=== PATIENT | male | born 1995 | race African-American/Black ===

== ENCOUNTER 2017-11-03 15:36 | Emergency (ER) | payer OTHER ==
--- NOTE | 2017-11-03 16:26 | XRAY Report ---
Reason: Trauma Procedure Date: 11/03/2017 Accession Number: [id number] / [id number] Procedure: XR - Wrist 4 View LT CPT Code: FULL RESULT: EXAM: LEFT WRIST RADIOGRAPHY EXAM DATE: 11/03/2017 04:14 PM. CLINICAL HISTORY: Pain and swelling since injury lifting heavy object a couple of weeks ago. COMPARISON: None. TECHNIQUE: 4 views. FINDINGS: Bones: Normal. No fractures or bone lesions. Joints: Normal. No subluxations. Soft Tissues: Normal. No soft tissue swelling. IMPRESSION: Normal wrist radiography. [facility]
--- NOTE | 2017-11-03 17:49 | ED Physician Documentation ---
PD HPI UPPER EXT INJURY - Stated complaint Stated Complaint: L WRIST PX - Chief complaint Chief Complaint: Ext Problem - History obtained from History obtained from: Patient - History of Present Illness Location: Left, Wrist Type of injury: Other (over use at work) Where injury occurred: Work Timing - onset: How many months ago (3) Timing - duration: Months Timing - details: Gradual onset, Still present, Waxing and waning Improved by: Rest, Immobilization Worsened by: Moving, Palpating Associated symptoms: Swelling. 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 He does lift objects 300-500lbs. He has some numbness to the hand periodically and he has a small mass on the back of the wrist that is painful. Review of Systems Constitutional: denies: Fever Eyes: denies: Decreased vision Ears: denies: Ear pain Nose: denies: Congestion Throat: denies: Sore throat Cardiac: denies: Chest pain / pressure Respiratory: denies: Dyspnea, Cough GI: denies: Abdominal Pain, Nausea, Vomiting : denies: Dysuria, Frequency Skin: denies: Rash Musculoskeletal: reports: Extremity pain, Joint pain, Pain with weight bearing. denies: Neck pain, Back pain PD PAST MEDICAL HISTORY - Present Medications Home Medications: Ambulatory Orders Medication Instructions Recorded Confirmed No Known Home Medications [No 11/03/17 11/03/17 Known Home Medications] - Allergies Allergies/Adverse Reactions: Allergies Allergy/AdvReac Type Severity Reaction Status Date / Time No Known Drug Allergies Allergy Verified 11/03/17 15:46 PD ED PE NORMAL - Vitals Vital signs reviewed: Yes (hypertensive ) - General General: Alert and oriented X 3, No acute distress, Well developed/nourished, Other (muscular/fit active duty male ) - HEENT HEENT: Atraumatic, PERRL - Respiratory Respiratory: No respiratory distress - Back Back: No CVA TTP, No spinal TTP - Derm Derm: Normal color, No rash - Extremities Extremities: No deformity, No edema, Other (There is point tenderness to the volar and dorsal mid wrist. There is some numbness into the hand to tapping on the median nerve. There is no tenderness to the anatomic snuff box. There is good ROM to the wrist. distal n/v is intact. 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, No motor deficit, No sensory deficit, Normal speech Eye Opening: Spontaneous Motor: Obeys Commands Verbal: Oriented GCS Score: 15 - Psych Psych: Normal mood, Normal affect Results - Vitals Vitals: Vital Signs - 24 hr 11/03/17 11/03/17 15:44 18:09 Temperature 36.2 C L 36.7 C Heart Rate 79 81 Respiratory 16 16 Rate Blood Pressure 136/76 H 114/60 O2 Saturation 100 98 Oxygen O2 Source Room air - Rads (name of study) wrist L Radiology: Prelim report reviewed (Impression: Normal wrist radiography.), EMP read indepedently, See rad report Procedures - Splint (location) left wrist Splint applied by: Tech Type of splint: Fiberglass, Volar cock up Other: Patient tolerated well, No complications, Neurovascular intact, Good alignment PD MEDICAL DECISION MAKING - ED course Complexity details: reviewed results, re-evaluated patient, considered differential, d/w patient ED course: 22-year-old male with chronic pain in his left wrist from excessive use at work appears to have some carpal tunnel and he does appear to have a small ganglion cyst on the dorsum of the wrist as well. He is placed into a splint given dexamethasone and instructed to follow-up with orthopedics. - Sepsis Event Vital Signs: Vital Signs - 24 hr 11/03/17 11/03/17 15:44 18:09 Temperature 36.2 C L 36.7 C Heart Rate 79 81 Respiratory 16 16 Rate Blood Pressure 136/76 H 114/60 O2 Saturation 100 98 Oxygen O2 Source Room air Departure - Departure Disposition: 01 Home, Self Care Clinical Impression: Strain of left wrist Qualifiers: Encounter type: initial encounter Qualified Code(s): S66.912A - Strain of unspecified muscle, fascia and tendon at wrist and hand level, left hand, initial encounter Condition: Stable Instructions: ED Sprain Wrist Follow-Up: Johnnie Mcgarry MD [Primary Care Provider] - [facility] [Provider Group]
[2017-11-03 18:10] VITALS: BP 114/60
[2017-11-03] MEDS ORDERED: DEXAMETHASONE 10 MG/ML VIAL PO STA (18:27)
== END 2017-11-03 18:33 | disposition home or self-care (01) ==
LOC: ED 15:36
DX: S66.912A Strain of unspecified muscle, fascia and tendon at wrist and hand level, left hand, initial encounter (principal); X50.0XXA Overexertion from strenuous movement or load, initial encounter; Y99.1 Military activity
CPT/HCPCS: 29125; 99283

== ENCOUNTER 2018-02-13 21:28 | Emergency (ER) | payer OTHER ==
[2018-02-13 21:43] VITALS: BP 143/80
--- NOTE | 2018-02-13 22:15 | ED Physician Documentation ---
History of Present Illness - Stated complaint Stated Complaint: SOA/VOMITING/DIZZY - Chief complaint Chief Complaint: Resp - History obtained from History obtained from: Patient - History of Present Illness Timing: How many days ago (3) Improved by: no ameliorating factors Worsened by: no exacerbating factors - Additonal information Additional information: c/o 3 days of increasingly frequent cough productive of green, thick sputum that has become blood-tinged today. c/o bilateral sinus congestion. subjective fevers (chills/sweats but has not measured temperature at home). Review of Systems Constitutional: reports: Chills, Sweats Ears: reports: Ear pain Nose: reports: Rhinorrhea / runny nose, Congestion, Sinus pressure / pain Throat: reports: Sore throat Cardiac: reports: Reviewed and negative Respiratory: reports: Cough, Hemoptysis. denies: Dyspnea GI: reports: Reviewed and negative PD PAST MEDICAL HISTORY - Past Medical History Past Medical History: No - Past Surgical History Past Surgical History: No - Present Medications Home Medications: Ambulatory Orders Medication Instructions Recorded Confirmed Azithromycin [Zithromax] 250 mg PO DAILY #4 tablet 02/13/18 Ibuprofen 600 mg PO Q6HR PRN #20 tablet 02/13/18 guaiFENesin/CODEINE [Robitussin AC] 10 ml PO Q6H PRN #100 udc 02/13/18 - Allergies Allergies/Adverse Reactions: Allergies Allergy/AdvReac Type Severity Reaction Status Date / Time No Known Drug Allergies Allergy Verified 02/13/18 21:36 - Living Situation Living Situation: reports: Alone Living Arrangement: reports: At home - Social History Does the pt smoke?: No Smoking Status: Never smoker Does the pt drink ETOH?: Yes Does the pt have substance abuse?: No - Immunizations Immunizations are current?: Yes - POLST Patient has POLST: No PD ED PE NORMAL - Vitals Vital signs reviewed: Yes - General General: Alert and oriented X 3, No acute distress, Well developed/nourished - HEENT HEENT: Moist mucous membranes, Pharynx benign, Other (trace central erythema bilateral TM; air bubbles noted behind both TMs) - Neck Neck: Supple, no meningeal sign - Cardiac Cardiac: RRR, No murmur - Respiratory Respiratory: No respiratory distress, Clear bilaterally Results - Vitals Vitals: Vital Signs - 24 hr 02/13/18 02/13/18 21:32 21:39 Temperature 37.0 C Heart Rate 82 77 Respiratory 18 18 Rate Blood Pressure 156/83 H 143/80 H O2 Saturation 99 98 Oxygen O2 Source Room air PD MEDICAL DECISION MAKING - ED course Complexity details: considered differential, d/w patient Departure - Departure Disposition: 01 Home, Self Care Clinical Impression: Bronchitis Sinusitis Qualifiers: Sinusitis location: unspecified location Chronicity: acute Recurrence: non- recurrent Qualified Code(s): J01.90 - Acute sinusitis, unspecified Condition: Good Instructions: ED Upper Resp Infec Abx Tx, ED Sinusitis Abx Tx Follow-Up: Johnnie Mcgarry MD [Primary Care Provider] - (3-4 days if not improving) Prescriptions: Ibuprofen 600 mg PO Q6HR PRN #20 tablet PRN Reason: Pain Azithromycin [Zithromax] 250 mg PO DAILY #4 tablet guaiFENesin/CODEINE [Robitussin AC] 10 ml PO Q6H PRN #100 udc PRN Reason: Cough Forms: Activity restrictions Discharge Date/Time: 02/13/18 23:08
[2018-02-13] MEDS ORDERED: AZITHROMYCIN 250 MG TABLET PO STA (22:54)
[2018-02-13] MEDS ORDERED: IBUPROFEN 600 MG TABLET PO STA (22:55)
== END 2018-02-13 23:08 | disposition home or self-care (01) ==
LOC: ED 21:28
DX: J40 Bronchitis, not specified as acute or chronic (principal); J01.90 Acute sinusitis, unspecified
CPT/HCPCS: 99283; 99284; A9270

== ENCOUNTER 2018-05-22 06:57 | Emergency (ER) | payer OTHER ==
[2018-05-22] MEDS ORDERED: ONDANSETRON 4 MG/2 ML VIAL IVP STA (07:06)
[2018-05-22] MEDS ORDERED: SODIUM CHLORIDE 0.9% 1,000 ML IV STA (07:06)
--- NOTE | 2018-05-22 07:34 | ED Physician Documentation ---
PD HPI NVD - Stated complaint Stated Complaint: N/V/D - Chief complaint Chief Complaint: Abd Pain - History obtained from History obtained from: Patient - History of Present Illness Timing - onset: How many days ago (2) Timing - duration: Days (2) Timing - details: Gradual onset Pain level max: 3 Pain level now: 3 Associated symptoms: Abdominal pain (cramping, diffuse). No: Fever, Chest pain, Hematemesis, Melena, Hematochezia, Dizzy, Near syncope / syncope, Loss of appetite Contributing factors: Sick contact (&[employer]). No: Bad food, Travel, Recent antibiotics, Alcohol use, Anticoagulated, Diabetes Improved by: Vomiting Worsened by: Eating Similar symptoms before: Has not had sx before Recently seen: Not recently seen Review of Systems Constitutional: reports: Fever (subjective). denies: Chills Nose: denies: Rhinorrhea / runny nose, Congestion Cardiac: denies: Chest pain / pressure Respiratory: denies: Cough GI: reports: Nausea, Vomiting, Diarrhea. denies: Hematemesis, Bloody / black stool Skin: denies: Rash Musculoskeletal: denies: Neck pain, Back pain Neurologic: denies: Headache PD PAST MEDICAL HISTORY - Past Medical History Past Medical History: No - Past Surgical History Past Surgical History: No - Present Medications Home Medications: Ambulatory Orders Medication Instructions Recorded Confirmed Ondansetron Odt [Zofran] 4 mg TL Q6H PRN #10 tablet 05/22/18 - Allergies Allergies/Adverse Reactions: Allergies Allergy/AdvReac Type Severity Reaction Status Date / Time No Known Drug Allergies Allergy Verified 05/22/18 07:02 - Social History Does the pt smoke?: No Smoking Status: Never smoker Does the pt drink ETOH?: Yes Does the pt have substance abuse?: No - Family History Family history: reports: Non contributory - Immunizations Immunizations are current?: Yes - POLST Patient has POLST: No PD ED PE NORMAL - Vitals Vital signs reviewed: Yes - General General: Alert and oriented X 3, No acute distress - HEENT HEENT: Moist mucous membranes, Pharynx benign - Neck Neck: Supple, no meningeal sign - Cardiac Cardiac: RRR, Strong equal pulses - Respiratory Respiratory: No respiratory distress, Clear bilaterally - Abdomen Abdomen: Soft, Non tender, Non distended - Derm Derm: Warm and dry, No rash - Extremities Extremities: No edema, No calf tenderness / cord - Neuro Neuro: Alert and oriented X 3 - Psych Psych: Normal mood, Normal affect Results - Vitals Vitals: Vital Signs - 24 hr 05/22/18 05/22/18 06:59 08:30 Temperature 36.5 C 36.6 C Heart Rate 68 70 Respiratory 18 20 Rate Blood Pressure 135/81 H 139/87 H O2 Saturation 100 100 Oxygen O2 Source Room air - Labs Labs: Laboratory Tests 05/22/18 05/22/18 07:30 07:30 WBC 5.5 RBC 5.43 Hgb 15.0 Hct 44.1 MCV 81.2 MCH 27.7 MCHC 34.1 RDW 13.5 Plt Count 238 MPV 6.8 L Neut # (Auto) 2.9 Lymph # (Auto) 1.9 Garfield # (Auto) 0.6 Eos # (Auto) 0.1 Baso # (Auto) 0.0 Absolute Nucleated RBC 0.00 Nucleated RBC % 0.0 Sodium 139 Potassium 4.1 Chloride 103 Carbon Dioxide 25 Anion Gap 11.0 BUN 12 Creatinine 1.1 Estimated GFR (MDRD) 100 Glucose 97 Calcium 9.4 Total Bilirubin 0.4 AST 26 ALT 18 Alkaline Phosphatase 76 Total Protein 7.6 Albumin 4.1 Globulin 3.5 Albumin/Globulin Ratio 1.2 Lipase 31 PD MEDICAL DECISION MAKING - ED course Complexity details: reviewed results, re-evaluated patient, considered differential, d/w patient ED course: Feels better after IVF and zofran. Tolerating PO without diff. Abd is soft, nt nd on serial exam. Likely viral gastroenteritis. Patient counseled regarding signs and symptoms for which I believe and urgent re-evaluation would be necessary. Patient with good understanding of and agreement to plan and is comfortable going home at this time This document was made in part using voice recognition software. While efforts are made to proofread this document, sound alike and grammatical errors may occur. Very well appearing, non-toxic. Departure - Departure Disposition: 01 Home, Self Care Clinical Impression: Viral gastroenteritis Condition: Good Instructions: ED Gastroenteritis Viral Follow-Up: Johnnie Mcgarry MD [Primary Care Provider] - Within 1 week Prescriptions: Ondansetron Odt [Zofran] 4 mg TL Q6H PRN #10 tablet PRN Reason: Nausea / Vomiting Comments: Drink plenty of fluids and rest. Return if you worsen. Forms: Activity restrictions Discharge Date/Time: 05/22/18 08:30
[2018-05-22 07:36] LABS: BASOPHILS % (AUTO) 0.9 %; EOSINOPHILS # (AUTO) 0.1 10^3/uL (0.0-0.7); EOSINOPHILS % (AUTO) 1.2 %; LYMPHOCYTES # (AUTO) 1.9 10^3/uL (1.5-3.5); MEAN CORPUSCULAR HEMOGLOBIN 27.7 pg (27.0-31.0); MEAN CORPUSCULAR HGB CONC 34.1 g/dL (32.0-36.0); MEAN CORPUSCULAR VOLUME 81.2 fL (80.0-94.0); MEAN PLATELET VOLUME 6.8 fL (7.4-11.4); MONOCYTES # (AUTO) 0.6 10^3/uL (0.0-1.0); MONOCYTES % (AUTO) 10.5 %; NEUTROPHILS # (AUTO) 2.9 10^3/uL (1.5-6.6); NEUTROPHILS % (AUTO) 52.4 %; PLT - PLATELET COUNT 238 10^3/uL (130-450); RED BLOOD COUNT 5.43 10^6/uL (4.70-6.10); RED CELL DISTRIBUTION WIDTH 13.5 % (12.0-15.0); WHITE BLOOD COUNT 5.5 x10^3/uL (4.8-10.8)
[2018-05-22 07:57] LABS: ALBUMIN 4.1 g/dL (3.2-5.5); ALBUMIN/GLOBULIN RATIO 1.2 (1.0-2.2); BILIRUBIN,TOTAL 0.4 mg/dL (0.2-1.0); CALCIUM 9.4 mg/dL (8.5-10.3); CREATININE 1.1 mg/dL (0.6-1.2); TOTAL PROTEIN 7.6 g/dL (6.7-8.2)
[2018-05-22 08:31] VITALS: BP 139/87
== END 2018-05-22 08:30 | disposition home or self-care (01) ==
LOC: ED 06:57
DX: A08.4 Viral intestinal infection, unspecified (principal)
CPT/HCPCS: 36415; 80053; 83690; 85025; 96361; 96374; 99283